=== PATIENT | male | born 1990 | race Caucasian/White ===

== ENCOUNTER 2020-06-15 18:17 | Emergency (ER) | payer OTHER, SELFPAY ==
[2020-06-15 18:19] VITALS: BP 124/76; PULSE 72; RESP 16; TEMP 36.6; O2SAT 97
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
[2020-06-15] MEDS: KETOROLAC 60 MG/2 ML VIAL 30 MG IM (20:27)
[2020-06-15] MEDS: LIDOCAINE PATCH 1 EACH ADH..PATCH TOP (20:27)
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
[2020-06-15 21:09] VITALS: BP 113/72; PULSE 60; O2SAT 99
[2020-06-15 21:12] VITALS: BP 112/70; PULSE 62; RESP 14; O2SAT 99
== END 2020-06-15 21:12 | disposition home or self-care (01) ==
PROVIDERS: Emergency Provider Nurse Practitioner Family
DX: S13.4XXA Sprain of ligaments of cervical spine, initial encounter (principal); S06.0X0A Concussion without loss of consciousness, initial encounter; V89.2XXA Person injured in unspecified motor-vehicle accident, traffic, initial encounter
CPT/HCPCS: 71045; 72125; 96372; 99283; J1885